=== PATIENT | female | born 1965 | race Caucasian/White ===

== ENCOUNTER 2024-03-19 12:11 | Emergency (ER) | payer OTHER ==
[2024-03-19 12:27] VITALS: BP 115/73; O2SAT 97
--- NOTE | 2024-03-19 12:58 | ED Physician Documentation ---
History of Present Illness - Stated complaint Stated Complaint: GLF - Chief complaint Chief Complaint: Trauma Hd/Nk - Additonal information Additional information: 58-year-old [place] she accidentally tripped over so mething and mechanically fell losing her balance hitting the back of her head on packed rocks. She had no loss of consciousness no nausea or vomiting no neurological deficits. Patient says that she has had multiple head injuries and concussions in the past and says that she does not feel any of those symptoms. She is able to get up immediately and walk without any difficulty and was able to walk into the emergency department without any difficulty today. She is not any blood thinners and says that she really has no pertinent past medical history. PD PAST MEDICAL HISTORY - Past Medical History Past Medical History: Yes Cardiovascular: High cholesterol Respiratory: Asthma Endocrine/Autoimmune: HyPOthyroidism Other Past Medical History: Colon CA 2019, in remission - Past Surgical History Past Surgical History: Yes General: Appendectomy - Present Medications Home Medications: Ambulatory Orders Medication Instructions Recorded Confirmed Levothyroxine [Synthroid] 25 mcg PO QDAC 03/19/24 03/19/24 Simvastatin [Zocor] 80 mg PO DAILY 03/19/24 03/19/24 - Allergies Allergies/Adverse Reactions: Allergies Allergy/AdvReac Type Severity Reaction Status Date / Time oxycodone Allergy Hallucinati Verified 03/19/24 12:23 ons - Social History Does the pt smoke?: No Smoking Status: Never smoker Does the pt drink ETOH?: Yes ETOH Use: Wine Does the pt have substance abuse?: No - Immunizations Immunizations are current?: Yes PD ED PE NORMAL - Vitals Vital signs reviewed: Yes - General General: Alert and oriented X 3, No acute distress, Well developed/nourished - HEENT HEENT: PERRL, Other (1 cm superficial laceration to posterior scalp with mild oozing of blood) - Neck Neck: No bony TTP, C-Spine cleared by NEXUS criteria - Extremities Extremities: No deformity, No tenderness to palpate, Normal ROM s pain - Neuro Neuro: Alert and oriented X 3, mill controller 2-12 intact, No motor deficit, No sensory deficit, Normal speech Eye Opening: Spontaneous Motor: Obeys Commands Verbal: Oriented GCS Score: 15 - Psych Psych: Normal mood, Normal affect Results - Vitals Vitals: Vital Signs - 24 hr 03/19/24 12:18 Temperature 36.5 C Heart Rate 68 Respiratory 16 Rate Blood Pressure 115/73 O2 Saturation 97 Oxygen O2 Source Room air Procedures - Laceration (location) posterior scalp laceration Length in cm: 1 (posterior scalp) Wound type: Linear Anesthesia: Lidocaine 1% with epi Wound preparation: Irrigated copiously NS Skin layer closure: Dermabond Other: Patient tolerated well, No complications, Tetanus UTD PD Medical Decision Making - ED course ED course: 58-year-old female presents emergency department for posterior scalp laceration. She mechanically fell tripping over something hitting the back of her head on packed gravel. She said that she had no loss of consciousness she is completely neurologically intact she is able to ambulate without any difficulty no dizziness no nausea or vomiting. I did consider doing a head CT but given the fact that patient appears so well and has no pertinent past medical history is not any blood thinners and does not appear to have any sort of scalp fracture I do not believe a head CT is warranted at this time and patient is agreeable to this plan. Laceration was repaired in simple fashion with Dermabond wound edges were well-approximated laceration was quite superficial. She was taught signs symptoms of infection and how to manage this at home and told to follow with primary care provider as needed. All questions answered patient is safe for discharge at this time. Departure - Departure Disposition: 01 Home, Self Care Clinical Impression: Laceration of scalp Instructions: ED Laceration Facial Skin Glue Comments: Thank you for trusting us with your care. We have repaired the superficial laceration on the back of your head with some Dermabond also known as skin glue. Do not be surprised if you are still noting some small amount of blood on your pillowcase tonight you may want to use a towel to cover it. Please follow-up with your primary care provider to let them know about today's visit. Within the next 3 days if you are having any change in mentation, confusion, increased fatigue and lethargy, or any other concerning emergent symptoms please do not hesitate to report back to the emergency department for further evaluation. Forms: PCP List
== END 2024-03-19 13:50 | disposition home or self-care (01) ==
LOC: ED 12:11
DX: S01.01XA Laceration without foreign body of scalp, initial encounter (principal); W01.198A Fall on same level from slipping, tripping and stumbling with subsequent striking against other object, initial encounter; Y92.71 Barn as the place of occurrence of the external cause
CPT/HCPCS: 12001; 99281